=== PATIENT | male | born 1990 | race Two or more races ===

== ENCOUNTER 2017-04-17 21:20 | Observation (INO) | payer MEDICAID ==
[~2017-04-17] VITALS: Ht 167.6 cm; Wt 90.7 kg
[2017-04-17 23:01] LABS: Basophils # (auto) 0 uL; Basophils % (auto) 0.3 % (0.0-2.0); Eosinophils # (auto) 0.1 uL; Eosinophils % (auto) 0.5 % (0.0-7.0); Hematocrit 43.8 % (41.0-53.0); Lymphocytes # (auto) 1.5 uL; Lymphocytes % (auto) 13.4 % (10.0-50.0); Mean Corpuscular Hemoglobin 32.9 pg (28.0-32.0); Mean Corpuscular Hgb Conc. 34.2 g/dL (32.0-36.0); Mean Corpuscular Volume 96.2 fL (80.0-100.0); Mean Platelet Volume 9.1 fL (6.9-10.8); Monocytes % (auto) 8.5 % (0.0-12.0); Neutrophils # (auto) 8.9 uL; Neutrophils % (auto) 77.3 % (37.0-80.0); Platelet Count (auto) 227 10^3/uL (140-450); Red Cell Distribution Width 12.9 % (11.8-14.3); White Blood Cell 11.5 10^3/uL (4.4-10.8)
[2017-04-17 23:19] LABS: Albumin 4.1 g/dL (3.4-5.0); Anion Gap 10 (5-15); BUN/Creatinine Ratio 18.5; Blood Urea Nitrogen 17 mg/dL (7-18); Calcium 9.3 mg/dL (8.5-10.1); Carbon Dioxide 23 mmol/L (21-32); Chloride 107 mmol/L (98-107); GFR African American 130 mL/min; GFR Non-African American 107 mL/min; Glucose 101 mg/dL (74-106); Potassium 3.7 mmol/L (3.5-5.1); Sodium 140 mmol/L (136-145)
[2017-04-17 23:24] LABS: Alkaline Phosphatase 86 U/L (45-117); Aspartate Aminotransferase 88 U/L (15-37); Bilirubin, Total 0.8 mg/dL (0.2-1.0); Total Protein 8.4 g/dL (6.4-8.2)
[2017-04-17 23:27] LABS: B-Type Natriuretic Peptide 7.66 pg/mL (0-100)
[2017-04-17 23:30] LABS: Temperature: 22.7 C (20.0-25.0)
[2017-04-17 23:34] LABS: INR 0.95 (0.9-1.15); Partial Thromboplastin Time 28.2 sec (22.64-33.71); Prothrombin Time 10.4 sec (9.37-12.3)
[2017-04-18] MEDS ORDERED: HYDROmorphone HCL 2 MG/ML VL IV ONE (03:30)
[2017-04-18] MEDS ORDERED: ONDANSETRON HCL 4 MG/2 ML VIAL IV ONE (03:30)
[2017-04-18 03:55] VITALS: BP 132/75
== END 2017-04-18 05:37 | disposition home or self-care (01) | DRG 144 ==
LOC: EDBD 21:20 → ER 21:30 → OVERFLOW 22:31 → ER 04-18 05:37
PROVIDERS: ADMIT Emergency Medicine; ATTEND Emergency Medicine
DX: S29.9XXA Unspecified injury of thorax, initial encounter (principal); S09.90XA Unspecified injury of head, initial encounter; S16.1XXA Strain of muscle, fascia and tendon at neck level, initial encounter; V89.2XXA Person injured in unspecified motor-vehicle accident, traffic, initial encounter; Y92.410 Unspecified street and highway as the place of occurrence of the external cause; Y93.89 Activity, other specified; Y99.8 Other external cause status
CPT/HCPCS: 36415; 70450; 71010; 72125; 80053; 83735; 83880; 84443; 84484; 85025; 85379; 85610; 85730; 96374; 96375; 99285; G0378; J1170; J2405